=== PATIENT | male | born 1985 | race Caucasian/White ===

== ENCOUNTER 2018-02-10 00:18 | Emergency (ER) | payer OTHER ==
[2018-02-10] MEDS ORDERED: Sodium Chloride 0.9% 10 ML Syringe FLUSH PRN (00:37)
[2018-02-10] MEDS ORDERED: Sodium Chloride 0.9% 2.5 ML Syringe FLUSH PRN ×2 (00:37)
[2018-02-10] MEDS ORDERED: Sodium Chloride 0.9% 1,000 ML IV ONE ×2 (00:37→01:13)
--- NOTE | 2018-02-10 00:55 | EDM.PDOC ---
ED HPI GENERAL MEDICAL PROBLEM - General Chief Complaint: General Stated Complaint: DIZZY Time Seen by Provider: 02/10/18 00:20 Source of Information: Reports: Patient History Limitations: Reports: No Limitations - History of Present Illness INITIAL COMMENTS - FREE TEXT/NARRATIVE: HISTORY AND PHYSICAL: History of present illness: 32-year-old male presenting the emergency department with chief complaint of dizziness and lightheadedness starting this evening approximately 30 minutes ago with past medical history of hypertension. 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 States that this evening approximately 30 minutes ago he was awoken from sleep with a feeling of dizziness and lightheadedness. He felt somewhat nauseous. States that for the past few nights he has not been able to sleep. Does admit to not drinking much fluid. He also states that he has been out of his lisinopril 20 mg by mouth daily for the past 2 days. He did take his blood pressure this morning and states it was in the 140s over 80s. He has had some generalized lower abdominal pain for the past few days but denies any bloody stool, dark tarry stools, or diarrhea. He has been feeling a little "off" for the past few days. States that he feels like his vision is becoming more tunneled and he is about to pass out. This has happening now multiple times. He does have a history of GERD and was on medication but has stopped that since he cut out caffeine from his diet and his symptoms have resolved. He did note some darker stools but not tarry. He currently denies any chest pain, palpitations, shortness of breath, syncopal episodes, or focal neurologic episodes. Initial exam patient's blood pressure is 177/111 with a heart rate of 98. Initial EKG shows normal sinus rhythm with a rate of 98. No significant ST changes. Otherwise exam is benign. CBC- Unremarkable other than a small increase in lymphocytes., UA unremarkable. CMP and Lipase- Unremarkable Trop and D-Dimer- Negative UA- Postive for UTI Review of systems: As per history of present illness and below otherwise all systems reviewed and negative. Past medical history: As per history of present illness and as reviewed below otherwise noncontributory. Surgical history: As per history of present illness and as reviewed below otherwise noncontributory. Social history: No reported history of drug or alcohol abuse. Family history: As per history of present illness and as reviewed below otherwise noncontributory. Physical exam: HEENT: Atraumatic, normocephalic, pupils reactive, negative for conjunctival pallor or scleral icterus, mucous membranes moist, throat clear, neck supple, nontender, trachea midline. Lungs: Clear to auscultation, breath sounds equal bilaterally, chest nontender. Heart: S1S2, regular, negative for clicks, rubs, or JVD. Abdomen: Soft, nondistended, nontender. Negative for masses or hepatosplenomegaly. Negative for costovertebral tenderness. Pelvis: Stable nontender. Genitourinary: Deferred. Rectal: Deferred. Extremities: Atraumatic, negative for cords or calf pain. Neurovascular unremarkable. Neuro: Awake, alert, oriented. Cranial nerves II through XII unremarkable. Cerebellum unremarkable. Motor and sensory unremarkable throughout. Exam nonfocal. Diagnostics: CBC, CMP, UA/UC, troponin, lipase, chest x-ray, EKG, CT abdomen and pelvis. Therapeutics: 1 L normal saline 2, Rocephin 1 g IV, ciprofloxacin 500 mg by mouth twice a day 14 days, lisinopril 20 mg by mouth daily #30 Impression: Acute Cystitis/ Prostatitis Plan: CBC, CMP, troponin, lipase, chest x-ray, EKG were unremarkable. In addition CT abdomen and pelvis was also unremarkable. Patient's urinalysis was positive for an acute UTI. I did discuss with patient that most likely that this is a prostatitis that may be causing his symptoms and showing up in his urine. I did give him 1 g of Rocephin and a prescription for ciprofloxacin 500 mg by mouth twice a day for 14 days. He is going to follow-up with the primary care provider and numbers were given. I also did give the patient a prescription for his lisinopril 20 mg by mouth daily. Instructed him to return to emergency department if he has any new or worsening symptoms. Definitive disposition and diagnosis as appropriate pending reevaluation and review of above. - Related Data Allergies Allergy/AdvReac Type Severity Reaction Status Date / Time No Known Allergies Allergy Verified 02/10/18 00:32 Home Meds: Home Meds Lisinopril 20 mg PO DAILY 02/10/18 [History] Loratadine 10 mg PO DAILY 02/10/18 [History] Minoxidil [Hair Regrowth Treatment] 60 mg DAILY 02/10/18 [History] Venlafaxine [Effexor] 75 mg PO DAILY 02/10/18 [History] Past Medical History HEENT History: Reports: None Cardiovascular History: Reports: Hypertension Respiratory History: Reports: None Gastrointestinal History: Reports: None Genitourinary History: Reports: None Neurological History: Reports: None Psychiatric History: Reports: Anxiety, Depression Endocrine/Metabolic History: Reports: None Hematologic History: Reports: None Immunologic History: Reports: None Oncologic (Cancer) History: Reports: None Dermatologic History: Reports: None - Infectious Disease History Infectious Disease History: Reports: None - Past Surgical History Head Surgeries/Procedures: Reports: None Musculoskeletal Surgical History: Reports: Shoulder Surgery Other Musculoskeletal Surgeries/Procedures:: left hand left arm right and left shoulder repairs Social & Family History - Caffeine Use Caffeine Use: Reports: None - Recreational Drug Use Recreational Drug Use: No ED ROS GENERAL - Review of Systems Review Of Systems: ROS reveals no pertinent complaints other than HPI. ED EXAM, GENERAL - Physical Exam Exam: See Below Course - Vital Signs Last Recorded V/S: Last Vital Signs Temp 97.6 F 02/10/18 00:29 Pulse 83 02/10/18 01:48 Resp 16 02/10/18 01:48 BP 143/99 H 02/10/18 01:48 Pulse Ox 98 02/10/18 01:48 - Orders/Labs/Meds Orders: Active Orders 24 hr Category Date Time Status Cardiac Monitoring [RC] . DIRECTED Care 02/10/18 00:37 Active EKG Documentation Completion [RC] STAT Care 02/10/18 00:37 Active Oxygen Therapy [RC] ASDIRECTED Care 02/10/18 00:37 Active Pulse Oximetry [RC] ASDIRECTED Care 02/10/18 00:37 Active Abdomen Pelvis w Cont [CT] Stat Exams 02/10/18 00:37 Taken Chest 1V Frontal [CR] Stat Exams 02/10/18 00:37 Taken UA W/MICROSCOPIC [URIN] Stat Lab 02/10/18 00:50 Ordered Sodium Chloride 0.9% [Saline Flush] Med 02/10/18 00:37 Active 10 ml FLUSH ASDIRECTED PRN Sodium Chloride 0.9% [Saline Flush] Med 02/10/18 00:37 Active 2.5 ml FLUSH ASDIRECTED PRN Sodium Chloride 0.9% [Saline Flush] Med 02/10/18 00:37 Active 2.5 ml FLUSH ASDIRECTED PRN Saline Lock Insert [OM.PC] Stat Oth 02/10/18 00:37 Ordered Medication Orders Sodium Chloride (Saline Flush) 2.5 ml FLUSH ASDIRECTED PRN PRN Reason: Keep Vein Open Last Admin: 02/10/18 00:57 Dose: 2.5 ml Sodium Chloride (Saline Flush) 10 ml FLUSH ASDIRECTED PRN PRN Reason: Keep Vein Open Last Admin: 02/10/18 00:57 Dose: 10 ml Sodium Chloride (Saline Flush) 2.5 ml FLUSH ASDIRECTED PRN PRN Reason: Keep Vein Open Last Admin: 02/10/18 00:57 Dose: 2.5 ml Labs: Laboratory Tests 02/10/18 02/10/18 02/10/18 Range/Units 00:35 00:35 00:35 WBC 5.64 (4.0-11.0) K/uL RBC 6.46 H (4.50-5.90) M/uL Hgb 13.3 (13.0-17.0) g/dL Hct 39.5 (38.0-50.0) % MCV 61.1 L (80.0-98.0) fL MCH 20.6 L (27.0-32.0) pg MCHC 33.7 (31.0-37.0) g/dL RDW Std Deviation 34.7 (28.0-62.0) fl RDW Coeff of Alexandra 17 H (11.0-15.0) % Plt Count 183 (150-400) K/uL Neut % (Auto) 43.0 L (48.0-80.0) % Lymph % (Auto) 42.9 H (16.0-40.0) % Mcculloch % (Auto) 11.3 (0.0-15.0) % Eos % (Auto) 2.3 (0.0-7.0) % Baso % (Auto) 0.5 (0.0-1.5) % Neut # (Auto) 2.4 (1.4-5.7) K/uL Lymph # (Auto) 2.4 (0.6-2.4) K/uL Mcculloch # (Auto) 0.6 (0.0-0.8) K/uL Eos # (Auto) 0.1 (0.0-0.7) K/uL Baso # (Auto) 0.0 (0.0-0.1) K/uL Nucleated RBC % 0.4 /100WBC Nucleated RBCs # 0 K/uL INR 1.01 D-Dimer, Quantitative < 0.19 (0.0-0.52) mg/LFEU Sodium 138 (136-148) mmol/L Potassium 3.5 (3.5-5.1) mmol/L Chloride 102 (98-107) mmol/L Carbon Dioxide 27.2 (21.0-32.0) mmol/L BUN 21 H (7.0-18.0) mg/dL Creatinine 1.0 (0.8-1.3) mg/dL Est Cr Clr Drug Dosing 105.46 mL/min Estimated GFR (MDRD) > 60.0 ml/min Glucose 122 H (74-106) mg/dL Calcium 9.4 (8.5-10.1) mg/dL Total Bilirubin 1.7 H (0.2-1.0) mg/dL AST 22 (15-37) IU/L ALT 33 (14-63) IU/L Alkaline Phosphatase 62 (46-116) U/L Troponin I < 0.050 (0.000-0.056) ng/mL Total Protein 7.8 (6.4-8.2) g/dL Albumin 4.8 (3.4-5.0) g/dL Globulin 3.0 (2.0-3.5) g/dL Albumin/Globulin Ratio 1.6 (1.3-2.8) Lipase 135 (73-393) U/L Urine Color Urine Appearance Urine pH (5.0-8.0) Ur Specific Estero (1.001-1.035) Urine Protein (NEGATIVE) mg/dL Urine Glucose (UA) (NEGATIVE) mg/dL Urine Ketones (NEGATIVE) mg/dL Urine Occult Blood (NEGATIVE) Urine Nitrite (NEGATIVE) Urine Bilirubin (NEGATIVE) Urine Urobilinogen (<2.0) EU/dL Ur Leukocyte Esterase (NEGATIVE) Urine RBC (0-2/HPF) Urine WBC (0-5/HPF) Ur Epithelial Cells (NONE-FEW) Urine Bacteria (NEGATIVE) 07/23/18 Range/Units 00:50 WBC (4.0-11.0) K/uL RBC (4.50-5.90) M/uL Hgb (13.0-17.0) g/dL Hct (38.0-50.0) % MCV (80.0-98.0) fL MCH (27.0-32.0) pg MCHC (31.0-37.0) g/dL RDW Std Deviation (28.0-62.0) fl RDW Coeff of Alexandra (11.0-15.0) % Plt Count (150-400) K/uL Neut % (Auto) (48.0-80.0) % Lymph % (Auto) (16.0-40.0) % Mcculloch % (Auto) (0.0-15.0) % Eos % (Auto) (0.0-7.0) % Baso % (Auto) (0.0-1.5) % Neut # (Auto) (1.4-5.7) K/uL Lymph # (Auto) (0.6-2.4) K/uL Mcculloch # (Auto) (0.0-0.8) K/uL Eos # (Auto) (0.0-0.7) K/uL Baso # (Auto) (0.0-0.1) K/uL Nucleated RBC % /100WBC Nucleated RBCs # K/uL INR D-Dimer, Quantitative (0.0-0.52) mg/LFEU Sodium (136-148) mmol/L Potassium (3.5-5.1) mmol/L Chloride (98-107) mmol/L Carbon Dioxide (21.0-32.0) mmol/L BUN (7.0-18.0) mg/dL Creatinine (0.8-1.3) mg/dL Est Cr Clr Drug Dosing mL/min Estimated GFR (MDRD) ml/min Glucose (74-106) mg/dL Calcium (8.5-10.1) mg/dL Total Bilirubin (0.2-1.0) mg/dL AST (15-37) IU/L ALT (14-63) IU/L Alkaline Phosphatase (46-116) U/L Troponin I (0.000-0.056) ng/mL Total Protein (6.4-8.2) g/dL Albumin (3.4-5.0) g/dL Globulin (2.0-3.5) g/dL Albumin/Globulin Ratio (1.3-2.8) Lipase (73-393) U/L Urine Color DARK YELLOW Urine Appearance SLT CLOUDY Urine pH 6.0 (5.0-8.0) Ur Specific Est[place] >= 1.030 (1.001-1.035) Urine Protein NEGATIVE (NEGATIVE) mg/dL Urine Glucose (UA) NEGATIVE (NEGATIVE) mg/dL Urine Ketones NEGATIVE (NEGATIVE) mg/dL Urine Occult Blood NEGATIVE (NEGATIVE) Urine Nitrite NEGATIVE (NEGATIVE) Urine Bilirubin NEGATIVE (NEGATIVE) Urine Urobilinogen 0.2 (<2.0) EU/dL Ur Leukocyte Esterase TRACE (NEGATIVE) Urine RBC 0-2 (0-2/HPF) Urine WBC 10-15 (0-5/HPF) Ur Epithelial Cells RARE (NONE-FEW) Urine Bacteria FEW (NEGATIVE) Meds: Medications Generic Name Dose Route Start Last Admin Trade Name Jax PRN Reason Stop Dose Admin Sodium Chloride 2.5 ml 02/10/18 00:37 02/10/18 00:57 Saline Flush FLUSH 2.5 ml ASDIRECTED PRN Administration Keep Vein Open Sodium Chloride 10 ml 02/10/18 00:37 02/10/18 00:57 Saline Flush FLUSH 10 ml ASDIRECTED PRN Administration Keep Vein Open Sodium Chloride 2.5 ml 02/10/18 00:37 02/10/18 00:57 Saline Flush FLUSH 2.5 ml ASDIRECTED PRN Administration Keep Vein Open Discontinued Medications Generic Name Dose Route Start Last Admin Trade Name Jax PRN Reason Stop Dose Admin Sodium Chloride 1,000 mls @ 999 mls/hr 02/10/18 00:37 02/10/18 00:56 Normal Saline IV 02/10/18 01:37 999 mls/hr .Bolus ONE Administration Sodium Chloride 1,000 mls @ 999 mls/hr 02/10/18 01:13 02/10/18 01:15 Normal Saline IV 02/10/18 02:13 999 mls/hr STAT ONE Administration Ceftriaxone Sodium/Dextrose 1 50 mls @ 100 mls/hr 02/10/18 01:49 02/10/18 02: 10 gm/ Premix IV 02/10/18 02:18 100 mls/hr ONETIME ONE Administration Iopamidol 80 ml 02/10/18 02:15 02/10/18 02:15 Isovue Multipack-370 (76%) IVPUSH 02/10/18 02:16 80 ml ONETIME ONE Administration Departure - Departure Time of Disposition: 03:17 Disposition: Home, Self-Care 01 Condition: Good Clinical Impression: Prostatitis, acute Acute cystitis Qualifiers: Hematuria presence: without hematuria Qualified Code(s): N30.00 - Acute cystitis without hematuria - Discharge Information Referrals: PCP,None [Primary Care Provider] - Forms: ED Department Discharge Additional Instructions: My general discharge The following information is given to patients seen in the emergency department who are being discharged to home. This information is to outline your options for follow-up care. We provide all patients seen in our emergency department with a follow-up referral. The need for follow-up, as well as the timing and circumstances, are variable depending upon the specifics of your emergency department visit. If you don't have a primary care physician on staff, we will provide you with a referral. We always advise you to contact your personal physician following an emergency department visit to inform them of the circumstance of the visit and for follow-up with them and/or the need for any referrals to a consulting specialist. The emergency department will also refer you to a specialist when appropriate. This referral assures that you have the opportunity for follow-up care with a specialist. All of these measure are taken in an effort to provide you with optimal care, which includes your follow-up. Under all circumstances we always encourage you to contact your private physician who remains a resource for coordinating your care. When calling for follow-up care, please make the office aware that this follow-up is from your recent emergency room visit. If for any reason you are refused follow-up, please contact the [facility] Emergency Department at and asked to speak to the emergency department charge nurse. [facility] [address] [place] [id number] [address] [place] [address] Please call one of the above numbers to set up a follow-up appointment with a primary care provider. Be sure to tell them that you were seen in emergency department and they wish for you to be followed up with as soon as possible. Take medications as prescribed. Return emergency department if any new or worsening symptoms. - My Orders Last 24 Hours: My Active Orders 02/10/18 00:37 Cardiac Monitoring [RC] . DIRECTED EKG Documentation Completion [RC] STAT Oxygen Therapy [RC] ASDIRECTED Pulse Oximetry [RC] ASDIRECTED Abdomen Pelvis w Cont [CT] Stat Chest 1V Frontal [CR] Stat Sodium Chloride 0.9% [Saline Flush] 10 ml FLUSH ASDIRECTED PRN Sodium Chloride 0.9% [Saline Flush] 2.5 ml FLUSH ASDIRECTED PRN Sodium Chloride 0.9% [Saline Flush] 2.5 ml FLUSH ASDIRECTED PRN Saline Lock Insert [OM.PC] Stat 02/10/18 00:50 UA W/MICROSCOPIC [URIN] Stat - Assessment/Plan Last 24 Hours: My Active Orders 02/10/18 00:37 Cardiac Monitoring [RC] . DIRECTED EKG Documentation Completion [RC] STAT Oxygen Therapy [RC] ASDIRECTED Pulse Oximetry [RC] ASDIRECTED Abdomen Pelvis w Cont [CT] Stat Chest 1V Frontal [CR] Stat Sodium Chloride 0.9% [Saline Flush] 10 ml FLUSH ASDIRECTED PRN Sodium Chloride 0.9% [Saline Flush] 2.5 ml FLUSH ASDIRECTED PRN Sodium Chloride 0.9% [Saline Flush] 2.5 ml FLUSH ASDIRECTED PRN Saline Lock Insert [OM.PC] Stat 02/10/18 00:50 UA W/MICROSCOPIC [URIN] Stat
[2018-02-10 01:14] LABS: CHLORIDE,CL 102 mmol/L (98-107); SODIUM,NA 138 mmol/L (136-148)
[2018-02-10] MEDS ORDERED: cefTRIAXone 1 GM in Premix Bag 1 BAG IV ONE (01:49)
[2018-02-10] MEDS ORDERED: Iopamidol 755 MG/ML 200 ML Multipack Bottle IVPUSH ONE (02:15)
--- NOTE | 2018-02-10 15:23 | CR ---
EXAM DATE: 02/10/18 PATIENT'S AGE: 32 Patient: FELICE NORWOOD Facility: [place], [place] Site . Site : 1985 Study: XRay Chest [id number]/23/2018 2:13:51 AM Ordering Physician: Davni Weller Final Report: INDICATION: Shortness of breath TECHNIQUE: Chest radiograph 1 view COMPARISON: 04/11/2017. FINDINGS: Cardiovascular and mediastinum: The heart silhouette is normal in size and morphology. The mediastinum is normal in appearance. Lungs and pleural spaces: Both lungs are unremarkable in appearance. No sign of pleural effusion seen. No pneumothorax is identified. Bones and soft tissues: No significant findings. IMPRESSION: 1. No acute cardiopulmonary disease is seen. Dictated by Michael Amor MD @ 02/10/2018 2:48:47 AM Dictated by: Michael Amor MD @ 02/10/2018 02:48:50 (Electronic Signature) Report Signed by Proxy. [facility]
--- NOTE | 2018-02-10 15:24 | CT ---
EXAM DATE: 02/10/18 PATIENT'S AGE: 32 Patient: FELICE NORWOOD Facility: [place], [place] Site . Site : 1985 Study: CT Abdomen/Pelvis W ARACELI [id number]/23/2018 2:14:53 AM Ordering Physician: Davin Weller Final Report: INDICATION: Generalized abdominal pain, symptoms for couple of weeks. TECHNIQUE: CT abdomen and pelvis acquired with i.v. 80 mL Isovue 370. Coronal and sagittal reformats were obtained. COMPARISON: None FINDINGS: Lower chest: Unremarkable. Liver: Unremarkable. Spleen: Unremarkable. Pancreas: Unremarkable. Gallbladder and bile ducts: Unremarkable. Kidneys: Unremarkable. No kidney or ureteral stones and no hydronephrosis seen. Adrenal glands: Unremarkable. GI tract: Unremarkable. The appendix is normal in appearance and size. Vascular: Unremarkable. Lymph nodes: Unremarkable. Miscellaneous: Unremarkable. No pneumoperitoneum is seen. No significant ascites is noted. Pelvic Organs: Unremarkable. Bones: Unremarkable for age. IMPRESSION: 1. Unremarkable CT of the abdomen and pelvis. No clear etiology identified for patient`s clinical symptoms of lower abdominal pain. 2. Normal appendix. Dictated by Michael Amor MD @ 02/10/2018 2:53:37 AM Please note that all CT scans at this facility use dose modulation, iterative reconstruction, and/or weight-based dosing when appropriate to reduce radiation dose to as low as reasonably achievable. Dictated by: Michael Amor MD @ 02/10/2018 02:53:44 (Electronic Signature) Report Signed by Proxy. [facility]
== END 2018-02-10 03:28 | disposition home or self-care (01) ==
LOC: MW.ED 00:18
DX: N30.00 Acute cystitis without hematuria (principal); N41.0 Acute prostatitis; I10 Essential (primary) hypertension; Z79.899 Other long term (current) drug therapy
CPT/HCPCS: 71045; 74177; 80053; 81001; 83690; 84484; 85025; 85379; 85610; 93005; 96361; 96365; 99285; J0696; J7040; Q9967; 99283

== ENCOUNTER 2018-03-13 04:39 | Emergency (ER) | payer OTHER ==
--- NOTE | 2018-03-13 04:57 | EDM.PDOC ---
ED HPI GENERAL MEDICAL PROBLEM - General Stated Complaint: POSSIBLE EXPOSURE Time Seen by Provider: 03/13/18 04:54 - History of Present Illness INITIAL COMMENTS - FREE TEXT/NARRATIVE: HISTORY AND PHYSICAL: History of present illness: Patient 32-year-old male who presents with concern of medical screening exam for blood exposure he did not have any blood reportedly in contact with unprotected surfaces he has no cuts or other concerns. Review of systems: As per history of present illness and below otherwise all systems reviewed and negative. Past medical history: As per history of present illness and as reviewed below otherwise noncontributory. Surgical history: As per history of present illness and as reviewed below otherwise noncontributory. Social history: No reported history of drug or alcohol abuse. Family history: As per history of present illness and as reviewed below otherwise noncontributory. Physical exam: Unremarkable Diagnostics: Exposure protocol Therapeutics: None Impression: #1 medical screening exam Definitive disposition and diagnosis as appropriate pending reevaluation and review of above. - Related Data Allergies Allergy/AdvReac Type Severity Reaction Status Date / Time No Known Allergies Allergy Verified 02/10/18 00:32 Home Meds: Home Meds Lisinopril 20 mg PO DAILY 02/10/18 [History] Loratadine 10 mg PO DAILY 02/10/18 [History] Minoxidil [Hair Regrowth Treatment] 60 mg DAILY 02/10/18 [History] Venlafaxine [Effexor] 75 mg PO DAILY 02/10/18 [History] Past Medical History HEENT History: Reports: None Cardiovascular History: Reports: Hypertension Respiratory History: Reports: None Gastrointestinal History: Reports: None Genitourinary History: Reports: None Neurological History: Reports: None Psychiatric History: Reports: Anxiety, Depression Endocrine/Metabolic History: Reports: None Hematologic History: Reports: None Immunologic History: Reports: None Oncologic (Cancer) History: Reports: None Dermatologic History: Reports: None - Infectious Disease History Infectious Disease History: Reports: None - Past Surgical History Head Surgeries/Procedures: Reports: None Musculoskeletal Surgical History: Reports: Shoulder Surgery Other Musculoskeletal Surgeries/Procedures:: left hand left arm right and left shoulder repairs Social & Family History - Caffeine Use Caffeine Use: Reports: None ED ROS GENERAL - Review of Systems Review Of Systems: ROS reveals no pertinent complaints other than HPI. ED EXAM, GENERAL - Physical Exam Exam: See Below (dictation) Course - Orders/Labs/Meds Orders: Active Orders 24 hr Category Date Time Status HEPATITIS B SURF AB QUANT [REF] Stat Lab 03/13/18 04:43 Ordered HEPATITIS PANEL (4) [REF] Stat Lab 03/13/18 04:43 Ordered HIV12 AG/AB 4TH GEN W/REFLEX [CHEM] Stat Lab 03/13/18 04:43 Ordered Departure - Departure Time of Disposition: 04:56 Disposition: Home, Self-Care 01 Condition: Good Clinical Impression: Encounter for medical screening examination - Discharge Information *PRESCRIPTION DRUG MONITORING PROGRAM REVIEWED*: Not Applicable *COPY OF PRESCRIPTION DRUG MONITORING REPORT IN PATIENT HOWIE: Not Applicable Referrals: PCP,None [Primary Care Provider] - Additional Instructions: The following information is given to patients seen in the emergency department who are being discharged to home. This information is to outline your options for follow-up care. We provide all patients seen in our emergency department with a follow-up referral. The need for follow-up, as well as the timing and circumstances, are variable depending upon the specifics of your emergency department visit. If you don't have a primary care physician on staff, we will provide you with a referral. We always advise you to contact your personal physician following an emergency department visit to inform them of the circumstance of the visit and for follow-up with them and/or the need for any referrals to a consulting specialist. The emergency department will also refer you to a specialist when appropriate. This referral assures that you have the opportunity for followup care with a specialist. All of these measure are taken in an effort to provide you with optimal care, which includes your followup. Under all circumstances we always encourage you to contact your private physician who remains a resource for coordinating your care. When calling for followup care, please make the office aware that this follow-up is from your recent emergency room visit. If for any reason you are refused follow-up, please contact the [facility] emergency department at and asked to speak to the emergency department charge nurse. Follow-up primary medical doctor/employee health as discussed return as needed as discussed - My Orders Last 24 Hours: My Active Orders 03/13/18 04:43 HEPATITIS B SURF AB QUANT [REF] Stat HEPATITIS PANEL (4) [REF] Stat HIV12 AG/AB 4TH GEN W/REFLEX [CHEM] Stat - Assessment/Plan Last 24 Hours: My Active Orders 03/13/18 04:43 HEPATITIS B SURF AB QUANT [REF] Stat HEPATITIS PANEL (4) [REF] Stat HIV12 AG/AB 4TH GEN W/REFLEX [CHEM] Stat
== END 2018-03-13 05:45 | disposition home or self-care (01) ==
LOC: MW.ED 04:39
DX: Z77.21 Contact with and (suspected) exposure to potentially hazardous body fluids (principal); I10 Essential (primary) hypertension; F41.9 Anxiety disorder, unspecified; F32.9 Major depressive disorder, single episode, unspecified; Z79.899 Other long term (current) drug therapy; F17.290 Nicotine dependence, other tobacco product, uncomplicated
CPT/HCPCS: 36415; 86706; 86803; 87389; 99283

== ENCOUNTER 2018-09-13 17:16 | Emergency (ER) | payer OTHER ==
--- NOTE | 2018-09-13 17:26 | EDM.PDOC ---
ED HPI GENERAL MEDICAL PROBLEM - General Chief Complaint: Chest Pain Stated Complaint: MIGRAINE Time Seen by Provider: 09/13/18 17:20 - History of Present Illness INITIAL COMMENTS - FREE TEXT/NARRATIVE: HISTORY AND PHYSICAL: History of present illness: Patient 33-year-old white male presents with her chest pain is somewhat intermittent throughout the days had similar episodes in the past he did have a stress test in recent past and nuclear medicine scan both of which were unremarkable. He's also had some neurological symptoms inform dizziness and headache he's had similar episodes in the past that were attributed to withdrawal from Effexor. He quit gauge regarding associated shortness breath no palpitations nausea vomiting or diaphoresis Review of systems: As per history of present illness and below otherwise all systems reviewed and negative. Past medical history: As per history of present illness and as reviewed below otherwise noncontributory. Surgical history: As per history of present illness and as reviewed below otherwise noncontributory. Social history: No reported history of drug or alcohol abuse. Family history: As per history of present illness and as reviewed below otherwise noncontributory. Physical exam: HEENT: Atraumatic, normocephalic, pupils reactive, negative for conjunctival pallor or scleral icterus, mucous membranes moist, throat clear, neck supple, nontender, trachea midline. Lungs: Clear to auscultation, breath sounds equal bilaterally, chest nontender. Heart: S1S2, regular, negative for clicks, rubs, or JVD. Abdomen: Soft, nondistended, nontender. Negative for masses or hepatosplenomegaly. Negative for costovertebral tenderness. Pelvis: Stable nontender. Genitourinary: Deferred. Rectal: Deferred. Extremities: Atraumatic, negative for cords or calf pain. Neurovascular unremarkable. Neuro: Awake, alert, oriented. Cranial nerves II through XII unremarkable. Cerebellum unremarkable. Motor and sensory unremarkable throughout. Exam nonfocal. 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 - Related Data Allergies Allergy/AdvReac Type Severity Reaction Status Date / Time No Known Allergies Allergy Verified 02/10/18 00:32 Home Meds: Home Meds Lisinopril 20 mg PO DAILY 02/10/18 [History] Venlafaxine [Effexor] 75 mg PO DAILY 02/10/18 [History] Past Medical History HEENT History: Reports: None Cardiovascular History: Reports: Hypertension Respiratory History: Reports: None Gastrointestinal History: Reports: None Genitourinary History: Reports: None Neurological History: Reports: None Psychiatric History: Reports: Anxiety, Depression Endocrine/Metabolic History: Reports: None Hematologic History: Reports: None Immunologic History: Reports: None Oncologic (Cancer) History: Reports: None Dermatologic History: Reports: None - Infectious Disease History Infectious Disease History: Reports: None - Past Surgical History Head Surgeries/Procedures: Reports: None Musculoskeletal Surgical History: Reports: Shoulder Surgery Other Musculoskeletal Surgeries/Procedures:: left hand left arm right and left shoulder repairs Social & Family History - Caffeine Use Caffeine Use: Reports: None ED ROS GENERAL - Review of Systems Review Of Systems: ROS reveals no pertinent complaints other than HPI. ED EXAM, GENERAL - Physical Exam Exam: See Below (See dictation) Course - Orders/Labs/Meds Orders: Active Orders 24 hr Category Date Time Status EKG 12 Lead [EKG Documentation Completion] [RC] STAT Care 09/13/18 17:20 Active Departure - Departure Time of Disposition: 17:26 Disposition: Home, Self-Care 01 Condition: Good Clinical Impression: Atypical chest pain - Discharge Information Additional Instructions: The following information is given to patients seen in the emergency department who are being discharged to home. This information is to outline your options for follow-up care. We provide all patients seen in our emergency department with a follow-up referral. The need for follow-up, as well as the timing and circumstances, are variable depending upon the specifics of your emergency department visit. If you don't have a primary care physician on staff, we will provide you with a referral. We always advise you to contact your personal physician following an emergency department visit to inform them of the circumstance of the visit and for follow-up with them and/or the need for any referrals to a consulting specialist. The emergency department will also refer you to a specialist when appropriate. This referral assures that you have the opportunity for followup care with a specialist. All of these measure are taken in an effort to provide you with optimal care, which includes your followup. Under all circumstances we always encourage you to contact your private physician who remains a resource for coordinating your care. When calling for followup care, please make the office aware that this follow-up is from your recent emergency room visit. If for any reason you are refused follow-up, please contact the [facility] emergency department at and asked to speak to the emergency department charge nurse. Follow-up primary medical doctor as discussed continue current medications and return as needed as discussed
[2018-09-13 18:22] LABS: CHLORIDE,CL 101 mmol/L (98-107); SODIUM,NA 136 mmol/L (136-148)
--- NOTE | 2018-09-13 18:33 | CR ---
INDICATION: Chest pain. TECHNIQUE: AP portable chest x-ray. FINDINGS: Heart size normal. Lungs clear without infiltrate. Mild gas distention stomach. Chest otherwise negative without acute disease. IMPRESSION: Negative chest. Dictated by Momo Hui MD @ Sep 13 2018 6:32PM Signed by Dr. Momo Hui @ Sep 13 2018 6:32PM
== END 2018-09-13 19:17 | disposition home or self-care (01) ==
LOC: MW.ED 17:16
DX: R07.89 Other chest pain (principal); I10 Essential (primary) hypertension; Z79.899 Other long term (current) drug therapy
CPT/HCPCS: 36415; 71045; 71045-26; 80053; 84484; 85025; 93005; 99285-25